=== PATIENT | male | born 1990 | race Caucasian/White ===

== ENCOUNTER 2022-09-21 14:05 | Emergency (ER) | payer MEDICAID ==
[~2022-09-21] VITALS: Ht 167.6 cm; Wt 86.0 kg
[2022-09-21 15:08] LABS: CHLORIDE 109 mEq/L (98-107)
[2022-09-21 15:35] LABS: ETHANOL BLOOD 335 mg/dL
[2022-09-21 15:37] LABS: BASOPHILS % 0.6 % (0.0-2.0); HEMATOCRIT. 47.4 % (42.0-52.0); HEMOGLOBIN. 16.2 g/dL (14.0-18.0); LYMPHOCYTES % 35.1 % (20.0-50.0); MEAN CORPUSCULAR HEMOGLOBIN 30.7 pg (28.0-32.0); MEAN CORPUSCULAR VOLUME 89.6 fL (80.0-94.0); MEAN PLATELET VOLUME 8.6 fl (7.4-10.4); MONOCYTES % 5.9 % (2.0-8.0); NEUTROPHILS % 58.4 % (40.0-76.0); PLATELET 223 x1000/uL (130-400); RED BLOOD CELL COUNT 5.29 mill/uL (4.7-6.1); RED CELL DISTRIBUTION WIDTH 13.3 % (11.6-14.6)
[2022-09-21 17:53] VITALS: BP 108/69
== END 2022-09-21 17:54 | disposition home or self-care (01) ==
LOC: ER 14:05
DX: F10.20 Alcohol dependence, uncomplicated (principal); Y90.8 Blood alcohol level of 240 mg/100 ml or more
CPT/HCPCS: 36415; 80053; 80320; 82962; 85025; 99283; G0480

== ENCOUNTER 2022-09-21 19:24 | Emergency (ER) | payer MEDICAID ==
[~2022-09-21] VITALS: Ht 185.4 cm; Wt 78.2 kg
[2022-09-21 19:26] VITALS: BP 126/75
[2022-09-21] MEDS ORDERED: MAGNESIUM/ALUMINUM HYDROXIDE/SIMETHICONE 30ML UDC PO ONE (19:45)
[2022-09-21] MEDS ORDERED: ONDANSETRON 4MG ODT PO ONE (19:45)
[2022-09-21 19:56] LABS: BASOPHILS % 0.3 % (0.0-2.0); EOSINOPHILS % 0.1 % (0.0-5.0); HEMOGLOBIN. 16.3 g/dL (14.0-18.0); LYMPHOCYTES % 22.3 % (20.0-50.0); MEAN CORPUSCULAR HEMOGLOBIN 30.4 pg (28.0-32.0); MEAN CORPUSCULAR VOLUME 89.8 fL (80.0-94.0); MEAN PLATELET VOLUME 8.6 fl (7.4-10.4); MONOCYTES % 5.2 % (2.0-8.0); NEUTROPHILS % 72.1 % (40.0-76.0); PLATELET 229 x1000/uL (130-400); RED BLOOD CELL COUNT 5.35 mill/uL (4.7-6.1); RED CELL DISTRIBUTION WIDTH 13.5 % (11.6-14.6)
[2022-09-21 20:03] LABS: CHLORIDE 106 mEq/L (98-107)
[2022-09-21 20:10] LABS: ETHANOL BLOOD 257 mg/dL
== END 2022-09-21 22:36 | disposition home or self-care (01) ==
LOC: ER 19:24
DX: F10.129 Alcohol abuse with intoxication, unspecified (principal); R11.2 Nausea with vomiting, unspecified; Z79.899 Other long term (current) drug therapy; Y90.8 Blood alcohol level of 240 mg/100 ml or more
CPT/HCPCS: 36415; 80053; 80320; 85025; 93005; 99284; G0480